=== PATIENT | male | born 1995 | race Caucasian/White ===

== ENCOUNTER 2020-11-12 10:06 | Emergency (ER) | payer OTHER, SELFPAY ==
[2020-11-12 10:10] VITALS: BP 161/94; PULSE 85; RESP 14; TEMP 36.1; O2SAT 99; BMI 25.3
--- NOTE | 2020-11-12 10:37 | DI.RAD.S_ITS ---
PROCEDURE: XR SHOULDER RT MIN 2V INDICATIONS: R shoulder pain, swelling, post trauma to top of shoulder TECHNIQUE: 3 views of the shoulder were acquired. COMPARISON: None. FINDINGS: Bones: No fractures or dislocations. No suspicious bony lesions. Visualized ribs appear intact. Soft tissues: No suspicious soft tissue calcifications. IMPRESSION: No acute fracture. No osseous lesion. If symptoms and/or clinical suspicion for pathology persist, further assessment with repeat, or advanced imaging (e.g., CT, MRI, or bone scan) may be helpful for further assessment. Dictated by: Gen Hendricks M.D. on 11/12/2020 at 10:59 Approved by: Gen Hendricks M.D. on 11/12/2020 at 10:59
--- NOTE | 2020-11-12 10:48 | ED.HEATRA ---
HPI - Head Injury <LISET Lynn - Last Filed: 11/12/20 15:13> General Chief complaint: Head Injury Stated complaint: Hit head at work Time Seen by Provider: 11/12/20 10:15 Source: patient Mode of arrival: Ambulatory Limitations: no limitations History of Present Illness HPI Narrative: 25yo male presents to the emergency department for right shoulder pain. He states he was at work when he had boards fall on his head, he states there were 3-6 x 6 boards fell onto the right side of his head and right shoulder. Patient denies passing out, vomiting, or vision changes after the incident. He states that he was knocked over and fell to the ground but did not hit his head. He does not have a headache at this time. He states he has some tenderness 3/10 to his right shoulder that is worse with palpation, not necessarily worse with movement. Patient denies any fevers, chills, nausea, vomiting, diarrhea, chest pain, shortness of breath, or any other concerns. He denies need for any pain medications at this time. Related Data Allergies Allergy/AdvReac Type Severity Reaction Status Date / Time No Known Drug Allergies Allergy Verified 11/12/20 10:14 Review of Systems <LISET Lynn - Last Filed: 11/12/20 15:13> Review of Systems Narrative: REVIEW OF SYSTEMS: GENERAL: Denies fever or chills. HENT: Reports head trauma without syncope. CARDIOVASCULAR: No chest pain or syncope. RESPIRATORY: No cough. GASTROINTESTINAL: No nausea or vomiting. GENITOURINARY: No flank pain. MUSCULOSKELETAL: Complains of right shoulder pain, see HPI. INTEGUMENTARY: No rash. No lacerations or bleeding. NEURO: No numbness, tingling. PSYCH: No behavior or mood changes. Patient History <LISET Lynn - Last Filed: 11/12/20 15:13> Medical History No significant medical problems Social History Smoking Status: Current every day smoker Smoking Status: Current every day smoker alcohol intake frequency: holidays/special occasions only Substance Use Type: does not use Exam <LISET Lynn - Last Filed: 11/12/20 15:13> Initial Vital Signs Initial Vital Signs: Vital Signs Temperature 96.9 F L 11/12/20 10:10 Pulse Rate 85 11/12/20 10:10 Respiratory Rate 14 11/12/20 10:10 Blood Pressure 161/94 H 11/12/20 10:10 Pulse Oximetry 99 11/12/20 10:10 PHYSICAL EXAMINATION: GENERAL: Awake and alert, no distress. HENT: Normocephalic, atraumatic. EYES: PERRLA, EOMIs, symmetrical, sclera white, no periorbital swelling. NECK: No midline tenderness, full range of motion. CARDIOVASCULAR: Regular rate. RESPIRATORY: Normal respiratory rate, trachea midline, airway patent. No stridor, nasal flaring or accessory muscle use. MUSCULOSKELETAL: Tenderness to right trapezius and sternocleidomastoid, some surrounding erythema and moderate swelling. Full range of motion of right shoulder. Normal gait and coordination. Equal tone and mass bilaterally. Equal energy conservation director strength bilaterally. EXTREMITIES: CMS intact. No pedal edema. SKIN: Warm, dry, soft, appropriate color for ethnicity. No lesions, rashes, or wounds. NEURO: Alert and Oriented X 3. No sensory deficits. PSYCH: Appropriate affect and mood. <Latia Weinberg DO - Last Filed: 11/13/20 08:29> Initial Vital Signs Initial Vital Signs: Vital Signs Temperature 96.9 F L 11/12/20 10:10 Pulse Rate 85 11/12/20 10:10 Respiratory Rate 14 11/12/20 10:10 Blood Pressure 161/94 H 11/12/20 10:10 Pulse Oximetry 99 11/12/20 10:10 Scores <LISET Lynn - Last Filed: 11/12/20 15:13> Nexus Score for C-Spine Focal Neurologic deficit present: No Midline spinal tenderness present: No Altered level of conciousness present: No Intoxication present: No Distracting Injury Present: No Nexus Criteria for C-spine: 0 Course <LISET Lynn - Last Filed: 11/12/20 15:13> Orders Ordered: Discontinued Medications Ketorolac Tromethamine (Ketorolac 60 Mg/2 Ml Vial) 30 mg IM NOW ONE Stop: 11/12/20 11:24 Last Admin: 11/12/20 11:28 Dose: 30 mg Documented by: KANWAL Vital Signs Vital signs: Vital Signs - 8 hr 11/12/20 10:10 11/12/20 11:48 Temperature 96.9 F L Pulse Rate 85 78 Respiratory Rate 14 Blood Pressure 161/94 H 145/78 H Pulse Oximetry 99 98 <Latia Weinberg DO - Last Filed: 11/13/20 08:29> Orders Ordered: Discontinued Medications Ketorolac Tromethamine (Ketorolac 60 Mg/2 Ml Vial) 30 mg IM NOW ONE Stop: 11/12/20 11:24 Last Admin: 11/12/20 11:28 Dose: 30 mg Documented by: KANWAL Vital Signs Vital signs: Vital Signs - 8 hr 11/12/20 10:10 11/12/20 11:48 Temperature 96.9 F L Pulse Rate 85 78 Respiratory Rate 14 Blood Pressure 161/94 H 145/78 H Pulse Oximetry 99 98 MDM - Head Injury <LISET Lynn - Last Filed: 11/12/20 15:13> Medical Records Attestation: I reviewed the patient's medical records. Lab Data Attestation: I reviewed the patient's lab results. Imaging Data Extremity x-ray #1: Radiologist's Impression: [address] [id number] ReportSigned Patient: Jean HungMR#: [id number]: 1995Acct:[id number]/Sex: 25 / MDate of Service: 11/12/20Loc: EDAccession Number: [id number] Procedure: XR shoulder RT min 2V Ordering Provider: Coby Rich PROCEDURE: XR SHOULDER RT MIN 2V INDICATIONS: R shoulder pain, swelling, post trauma to top of shoulder TECHNIQUE: 3 views of the shoulder were acquired. COMPARISON: None. FINDINGS: Bones: No fractures or dislocations. No suspicious bony lesions. Visualized ribs appear intact. Soft tissues: No suspicious soft tissue calcifications. IMPRESSION: No acute fracture. No osseous lesion. If symptoms and/or clinical suspicion for pathology persist, further assessment with repeat, or advanced imaging (e.g., CT, MRI, or bone scan) may be helpful for further assessment. Dictated by: Gen Hendricks M.D. on 11/12/2020 at 10:59 Approved by: Gen Hendricks M.D. on 11/12/2020 at 10:59 [facility] Narrative Medical decision making narrative: 25-year-old male presenting to the emergency department after multiple pieces of wood fell on the right side of his head and shoulder. I suspect patient's pain and swelling on the right shoulder/spoke trapezius muscles most likely due to soft tissue injury such as contusion given mechanism of injury and negative x-ray. Patient did not have any neck tenderness or bony shoulder tenderness. Additionally, I suspect patient has a mild close head injury,/concussion. No signs of severe concussion such as vomiting, syncope, or vision changes. Neuro exam is intact, no indication for head CT at this time. Patient was counseled about concussion precautions, he was given a REAP packet at discharge. He was encouraged to take Tylenol and ibuprofen as needed for pain and apply ice to her shoulder. Return precautions given for new worsening symptoms. He agreed to plan of care verbalized understanding. L&I paperwork filled out and filed. Discharge Plan Departure Patient Disposition: Home Clinical Impression: Closed head injury Qualifiers: Encounter type: initial encounter Qualified Code(s): S09.90XA - Unspecified injury of head, initial encounter Contusion of shoulder, right Qualifiers: Encounter type: initial encounter Qualified Code(s): S40.011A - Contusion of right shoulder, initial encounter Instructions: DI for Closed Head Injury Activity Restrictions/Additional Instructions: Thank you for entrusting me with your care today. As discussed, your x-rays negative for any fractures. The swelling on air shoulders most likely from a contusion. Take ibuprofen as needed, apply ice. I suspect you may have a mild concussion with a headache, some difficulty focusing, and intermittent nausea. You may rest as needed, decreased screen time, take Tylenol and ibuprofen as needed for pain. Return emergency department for any new or worsening symptoms such as vomiting, double vision, severe pain, or any other concerns. Follow-up with your PCP or L&I provider. Stand Alone Forms: Work Release Note <Latia Weinberg DO - Last Filed: 11/13/20 08:29> Cosign ED Attending Rosemarieature Attestation: I was immediately available in the department for consultation. Documentation has been reviewed.
[2020-11-12] MEDS: KETOROLAC 60 MG/2 ML VIAL 30 MG IM (11:28)
[2020-11-12 11:48] VITALS: BP 145/78; PULSE 78; O2SAT 98
== END 2020-11-12 11:49 | disposition home or self-care (01) ==
PROVIDERS: Emergency Provider Nurse Practitioner
DX: S09.90XA Unspecified injury of head, initial encounter (principal); S40.011A Contusion of right shoulder, initial encounter; W18.09XA Striking against other object with subsequent fall, initial encounter; Y99.0 Civilian activity done for income or pay
CPT/HCPCS: 73030; 96372; 99281; 99283; J1885